=== PATIENT | male | born 1990 | race Caucasian/White ===

== ENCOUNTER 2019-01-05 22:36 | Inpatient (IN) | payer MEDICAID, OTHER ==
[2019-01-05] MEDS ORDERED: NS 1,000 ML IV ONE ×2 (23:05→23:56)
--- NOTE | 2019-01-05 23:08 | EDPHY ---
H & P Stated Complaint: 425 BS at 2156 hasn't been dx with DM just got a meter at the store Time Seen by Provider: 01/05/19 23:07 HPI/ROS: HPI CHIEF COMPLAINT: High blood sugar. HISTORY OF PRESENT ILLNESS: Patient is a 28-year-old male, presents emergency room with a high blood sugar. Patient states over the past 2 months he noticed increased urination, fatigue, increased thirst, and foamy urine. He decided go to the store tonight check his blood glucose and it was very high on the glucometer he checked with another glucometer at the store and notes that was very high again. He denies recent illness, denies vomiting or diarrhea. He has never been diagnosed with diabetes Past Medical History: Denies medical history Past Surgical History: Denies surgical Social History: Denies drugs alcohol tobacco. Family History: Noncontributory ROS REVIEW OF SYSTEMS: 10 Systems were reviewed and negative with the exception of the elements mentioned in the history of present illness. Exam Constitutional triage nursing summary reviewed, vital signs reviewed, awake/ alert. Eyes normal conjunctivae and sclera, EOMI, PERRLA. HENT normal inspection, atraumatic, moist mucus membranes, no epistaxis, neck supple/ no meningismus, no raccoon eyes. Respiratory clear to auscultation bilaterally, normal breath sounds, no respiratory distress, no wheezing. Cardiovascular rate normal, regular rhythm, no murmur, no edema, distal pulses normal. Gastrointestinal soft, non-tender, no rebound, no guarding, normal bowel sounds, no distension, no pulsatile mass. Genitourinary no CVA tenderness. Musculoskeletal no midline vertebral tenderness, full range of motion, no calf swelling, no tenderness of extremities, no meningismus, good pulses, neurovascularly intact. Skin pink, warm, & dry, no rash, skin atraumatic. Neurologic awake, alert and oriented x 3, AAOx3, moves all 4 extremities equally, motor intact, sensory intact, CN II-XII intact, normal cerebellar, normal vision, normal speech. Psychiatric normal mood/affect. Heme/Lymph/Immune no lymphadenopathy. Differential Diagnosis: Includes but is not limited to in a particular order new onset diabetes, DKA, dehydration, electrolyte disturbance, hyperglycemia Medical Decision Making: Plan for this patient IV establishment IV fluid bolus , basic labs, urinalysis, ketones re-evaluate Re-evaluation: Critical Care: Total Critical Care Time Spent Managing this Patient: 65 Minutes. This time was spent Exclusively with this patient. This Care was exclusive of procedures. The Organ System/life at risk was DKA This Patient was in Critical Condition becauseDKA Patient's bicarb bloated noted to be low at 12, anion gap of 20, blood sugar over 300 concerning for new onset DKA new onset diabetes. 2 L of fluid been ordered. I have ordered a VBG and beta hydroxybutyrate, plan for admission the hospital for DKA. Insulin drip. 1221AM: Spoke with Dr. Hodgson, agrees to admit. admit to ICU. Dr. Hodgson agrees to admit K 3.3, will replete before Insulin gtt. Q1hr bmp q1hr glucose Source: Patient - Personal History Current Tetanus/Diphtheria Vaccine: Unsure Current Tetanus Diphtheria and Acellular Pertussis (TDAP): Unsure - Medical/Surgical History Hx Asthma: No Hx Chronic Respiratory Disease: No Hx Diabetes: No Hx Cardiac Disease: No Hx Renal Disease: No Hx Cirrhosis: No Hx Alcoholism: No Hx HIV/AIDS: No Hx Splenectomy or Spleen Trauma: No Other PMH: denies - Social History Smoking Status: Current some day smoker Constitutional: Initial Vital Signs Temperature (C) 36.8 C 01/05/19 22:37 Heart Rate 88 01/05/19 22:37 Respiratory Rate 16 01/05/19 22:37 Blood Pressure 127/78 H 01/05/19 22:37 O2 Sat (%) 99 01/05/19 22:37 O2 Delivery Mode Room Air Allergies/Adverse Reactions: No Known Allergies Allergy (Verified 01/05/19 22:41) Home Medications: Medication Instructions Recorded Dextroamphetamine/Amphetamine 20 mg PO BID@,14 PRN 01/05/19 [Adderall Xr 20 mg Capsule] Cholecalciferol Vit D3 [Vitamin D3 1,000 units PO DAILY 01/06/19 (*)] [place]-3 Fatty Acids [Fish Oil 1000 1,000 mg PO DAILY 01/06/19 mg (*)] Insulin Glargine [Lantus Syringe] 36 units SC DAILY #1 vial 01/07/19 Insulin Lispro [HumaLOG LISPRO] 0 unit SC TIDMEAL unit 01/07/19 Medical Decision Making - Data Points Laboratory Results: Laboratory Results 01/05/19 23:18 01/06/19 10:40 Medications Given: Discontinued Medications Acetaminophen (Tylenol) 650 mg PO Q4HRS PRN PRN Reason: Pain, Mild/Fever, Can Take PO Stop: 07/05/19 01:24 Last Admin: 01/06/19 13:28 Dose: 650 mg Dextrose (Dextrose 50% Syringe) 25 gm IVP Q15M PRN PRN Reason: Blood gluc less than 70 mg/dL Stop: 07/05/19 02:59 Last Admin: 01/06/19 08:04 Dose: 25 gm Sodium Chloride (Ns) 1,000 mls @ 0 mls/hr IV EDNOW ONE; Wide Open PRN Reason: Protocol Stop: 01/05/19 23:06 Last Admin: 01/05/19 23:18 Dose: 1,000 mls Sodium Chloride (Ns) 1,000 mls @ 0 mls/hr IV ONCE ONE PRN Reason: Wide Open Stop: 01/05/19 23:57 Last Admin: 01/06/19 00:16 Dose: 1,000 mls Insulin Human Regular 100 unit / Miscellaneous Medication 1 ea/ Sodium Chloride 101 mls @ 0 mls/hr IV EDNOW ONE; Per Protocol PRN Reason: Protocol Stop: 01/05/19 23:59 Last Admin: 01/06/19 01:42 Dose: 101 mls Potassium Chloride (Potassium Cl 10 Meq (Premix)) 100 mls @ 100 mls/hr IV Q1H LUANNE Stop: 01/06/19 02:29 Last Admin: 01/06/19 01:34 Dose: 100 mls Dextrose (D10w) 1,000 mls @ 0 mls/hr IV AD LUANNE; Per Protocol PRN Reason: Protocol Stop: 07/05/19 02:59 Last Admin: 01/06/19 02:51 Dose: 1,000 mls Sodium Chloride (Ns) 500 mls @ 500 mls/hr IV ONCE ONE Stop: 01/06/19 02:59 Last Admin: 01/06/19 04:50 Dose: 500 mls Potassium Chloride (Potassium Cl 10 Meq (Premix)) 100 mls @ 100 mls/hr IV Q1H LUANNE Stop: 01/06/19 09:29 Last Admin: 01/06/19 10:25 Dose: 100 mls Magnesium Sulfate (Magnesium Sulf 2 Gm (Premix)) 50 mls @ 50 mls/hr IV ONCE ONE Stop: 01/06/19 10:18 Last Admin: 01/06/19 10:36 Dose: 50 mls Calcium Gluconate (Calcium Gluconate 1 Gm (Premix)) 50 mls @ 100 mls/hr IV ONCE ONE Stop: 01/06/19 09:48 Last Admin: 01/06/19 10:26 Dose: 50 mls Insulin Glargine (Lantus Syringe) 34 units SC DAILY LUANNE Stop: 07/05/19 11:14 Last Admin: 01/07/19 09:59 Dose: 34 units Insulin Human Lispro (Humalog Lispro) 0 unit SC TIDMEAL LUANNE PRN Reason: Protocol Stop: 07/05/19 11:59 Last Admin: 01/07/19 08:55 Dose: Not Given Miscellaneous Information (Message To Rn) 1 ea MISC ONCE ONE Stop: 01/06/19 03:01 Last Admin: 01/06/19 04:51 Dose: 1 ea Ondansetron HCl (Zofran) 4 mg IVP Q4HRS PRN PRN Reason: Nausea/Vomiting, Can't Take PO Stop: 07/05/19 01:24 Last Admin: 01/06/19 08:37 Dose: 4 mg Potassium Chloride (Klor-Con) 10 - 40 meq PO ONCE ONE PRN Reason: Protocol Stop: 01/06/19 10:35 Last Admin: 01/06/19 11:27 Dose: 40 meq Potassium Chloride (Klor-Con) 10 - 40 meq PO ONCE ONE PRN Reason: Protocol Stop: 01/06/19 19:30 Last Admin: 01/06/19 20:45 Dose: 40 meq Point of Care Test Results: Chemistry 01/06/19 01/06/19 01/06/19 14:27 13:23 12:32 POC Sodium POC Potassium POC Chloride POC Total CO2 POC BUN POC Creatinine POC Glucose 128 mg/dL H mg/dL 159 mg/dL H mg/dL 117 mg/dL H mg/dL (70-100) (70-100) (70-100) 01/06/19 01/06/19 01/06/19 11:38 10:30 09:37 POC Sodium POC Potassium POC Chloride POC Total CO2 POC BUN POC Creatinine POC Glucose 84 mg/dL mg/dL 79 mg/dL mg/dL 85 mg/dL mg/dL (70-100) (70-100) (70-100) 01/06/19 01/06/19 01/06/19 08:24 08:01 07:39 POC Sodium POC Potassium POC Chloride POC Total CO2 POC BUN POC Creatinine POC Glucose 181 mg/dL H mg/dL 110 mg/dL H mg/dL 59 mg/dL L mg/dL (70-100) (70-100) (70-100) 01/06/19 01/06/19 01/06/19 06:35 05:37 03:44 POC Sodium POC Potassium POC Chloride POC Total CO2 POC BUN POC Creatinine POC Glucose 86 mg/dL mg/dL 84 mg/dL mg/dL 90 mg/dL mg/dL (70-100) (70-100) (70-100) 01/06/19 01/06/19 01/06/19 02:41 01:36 00:15 POC Sodium 136 mEq/L mEq/L 133 mEq/L L mEq/L (135-145) (135-145) POC Potassium 3.4 mEq/L mEq/L 3.0 mEq/L L mEq/L (3.3-5.0) (3.3-5.0) POC Chloride 104 mEq/L mEq/L 100 mEq/L mEq/L (97-110) (97-110) POC Total CO2 13 mEq/L L mEq/L 13 mEq/L L mEq/L (22-31) (22-31) POC BUN 12 mg/dL mg/dL 14 mg/dL mg/dL (7-23) (7-23) POC Creatinine 0.6 mg/dL L mg/dL 0.7 mg/dL mg/dL (0.7-1.3) (0.7-1.3) POC Glucose 166 mg/dL H mg/dL 286 mg/dL H mg/dL 379 mg/dL H mg/dL (70-100) (70-100) (70-100) Blood Gas/Lactic Acid-Arterial 01/06/19 06:35 Tidal Volume REJ ISTAT H&H 01/06/19 01/06/19 01:36 00:15 POC Hgb 13.3 gm/dL L gm/dL 15.6 gm/dL gm/dL (13.7-17.5) (13.7-17.5) POC Hct 39 % L % 46 % % (40-51) (40-51) Departure - Departure Disposition: [facility] Inpatient Acute Clinical Impression: DKA (diabetic ketoacidoses) Qualifiers: Diabetes mellitus type: type 1 Diabetes mellitus complication detail: without coma Qualified Code(s): E10.10 - Type 1 diabetes mellitus with ketoacidosis without coma Condition: Critical
[2019-01-05 23:31] LABS: PLATELET COUNT 186 10^3/uL (150-400)
[2019-01-05] MEDS ORDERED: INSULIN REGULAR HUMAN 100 UNIT, COSIGN. REQUIRED 1 EA in NS 100 ML IV ONE (23:58)
[2019-01-06] MEDS: POTASSIUM Cl (KCl) 100 ML IV SCH ×6 (00:26→10:25)
[2019-01-06] MEDS ORDERED: ACETAMINOPHEN 325 MG TAB PO PRN (01:25)
[2019-01-06] MEDS ORDERED: ONDANSETRON DISINTEGRATING 4 MG TAB PO PRN (01:25)
[2019-01-06] MEDS ORDERED: ONDANSETRON 4 MG/2 ML VIAL IVP PRN (01:25)
[2019-01-06] MEDS ORDERED: NS 500 ML IV ONE (02:00)
--- NOTE | 2019-01-06 02:49 | GHP ---
[f rep st] HISTORY AND PHYSICAL DATE OF ADMISSION: 01/06/2019 PCP: Grant Adam MD. SOURCE: The patient provides history, appears reliable. EMR was reviewed and case discussed with ED provider. CHIEF COMPLAINT: High blood sugars. HISTORY OF PRESENT ILLNESS: Very pleasant 28-year-old gentleman with past medical history significan t for attention deficit hyperactivity disorder who presents to the emergency department today with co mplaints of elevated blood sugars. Patient has had 2 months of increasing thirst, fatigue, urination , normal appetite. He reports he went to the pharmacy and obtained a glucometer to check his blood s ugar. It was elevated greater than 400. Patient overall has just had generalized fatigue. No severe illnesses. He denies any cough, shortness of breath, rash, nausea, vomiting, diarrhea, dysuria or h ematuria. Yesterday, he did feel a little bit cold but no chills. The patient was experiencing some GI symptoms yesterday. He did take some Prilosec. Developed some nausea and GI upset, but no vomiti ng and no diarrhea. The patient does note he did have some lower extremity nonpitting edema a few da ys ago that did resolve. But he does note that it correlates with him sitting in a chair upright for 12 hours each day. REVIEW OF SYSTEMS: 10 systems reviewed, negative except as noted above. ALLERGIES: No known drug allergies. HOME MEDICATIONS: Adderall. PAST MEDICAL HISTORY: Significant for attention deficit hyperactivity disorder. PAST SURGICAL HISTORY: [place] tooth extraction. Otherwise, no abdominal surgeries. FAMILY HISTORY: Patient denies any autoimmune disorders, diabetes. SOCIAL HISTORY: The patient has a girlfriend at bedside. He occasionally vapors tobacco. Rare alco hol use. Denies any drugs or marijuana. CODE STATUS: Full. PHYSICAL EXAMINATION: VITAL SIGNS: Upon arrival to the emergency department, blood pressure is 127/ 78, heart rate 88, respiratory rate 16, O2 sats 99% on room air. Respiratory rate 16, temperature is 36.8. Current blood pressure is 104/67, heart rate 69, respiratory rate 16, O2 sat 100% on room air, temperature 36.5. GENERAL: No acute distress. Very pleasant thin adult gentleman is resting comfo rtably in bed. Girlfriend at bedside. HEAD: Normocephalic, atraumatic. EYES: Extraocular muscles grossly intact. Pupils equal, round, slightly decreased reactivity to light bilaterally, but symmet renuka. No scleral icterus or conjunctival injection. ENT: Mucous membranes appear moist. No orophar yngeal erythema or exudates. Dentition intact. No nasal discharge. NECK: Supple trachea midline. C V: Regular rate and rhythm. No murmurs, rubs, or gallops appreciated. RESPIRATORY: Lungs clear to auscultation bilaterally. No wheezes, rales, or rhonchi. Unlabored breathing. ABDOMEN: Positive fly wel sounds. Soft, nontender to palpation. No rebound, guarding, or masses appreciated. : No sup rapubic tenderness to palpation. No Wells catheter in place. EXTREMITIES: No cyanosis, clubbing, o r edema is appreciated. Patient with 1+ pedal pulses bilaterally and symmetric. NEURO: Grossly non focal. No facial drooping. Moves all extremities. PSYCH: Thought process, content and questions are all appropriate. Patient is pleasant and cooperative. LABORATORY STUDIES: WBC is 5.04, H and H is 15.2 and 41.7, MCV 93.7, platelet count 186, neutrophil percent 32.9, lymphocyte percent 54.6. Repeat H and H is 13.3 and 39. VBG pH is 7.21, pCO2 28, PO2 i s 42, bicarb 11, O2 saturation 70, base excess -16. Upon presentation, patient's sodium is 130, pota ssium 3.3, chloride is 98, CO2 is 12, anion gap 20, BUN 14, creatinine 0.7, GFR greater than 60, gluc ose is 373, calcium is 8.6. Beta hCG is 8.4. Repeat sodium is 134, potassium 3.3, chloride 107 , CO2 is 11, anion gap 16, BUN is 12, creatinine 0.7, glucose is 294, calcium 7.3, phosphorus 2.8, magnesi um 1.6. Beta hCG 7.47. Urine specific gravity 1.028 with a pH of 5.0, 2+ ketones, 3+ glucose, otherw ise negative. ASSESSMENT AND PLAN: A pleasant 28-year-old gentleman who is otherwise healthy with a past medical h istory of attention deficit hyperactivity disorder who presents to the emergency department with comp laints of elevated sugars. 1. Diabetic ketoacidosis suspicious for likely type 1 diabetes. Patient was previously healthy unti l approximately 2 months ago when he noticed these symptoms. The patient has been started on an insu aurora drip. His gap initially was 20. I is starting to decline after fluids and potassium. Now that h is potassium has been replaced he has been started on an insulin drip. Diabetic education will be re quested. We will continue patient on drips pending his gap closure. 2. Hypokalemia. Replacement has been given and improved. 3. Anemia, likely some component of anemia of dilutional component, although this point of care H an d H will plan to repeat a CBC in the morning. Plan to monitor. 4. Fluid, electrolyte, nutrition. Continue with normal saline. Transition appropriately to D5 whil e on the insulin drip. Ice chips and medications okay. Otherwise patient will be made n.p.o. during treatment for his diabetic ketoacidosis. 5. Prophylaxis, SCDs. Mobilize as tolerated. Low risk overall for VT. 6. Code status: Full. 7. Disposition: Patient admitted to observation status in the ICU pending reassessment of his gap an d closure. /[id number]/MODL
[2019-01-06] MEDS ORDERED: RN:ENTER POTASSIUM ICU PROTOCOL ON WORKLIST MISC ONE (03:00)
[2019-01-06] MEDS ORDERED: INSULIN REGULAR HUMAN 100 UNIT in NS 100 ML IV SCH (03:00)
[2019-01-06] MEDS ORDERED: NS 1,000 ML IV SCH (03:00)
[2019-01-06] MEDS ORDERED: D10W 1,000 ML IV SCH (03:00)
[2019-01-06] MEDS ORDERED: PROTOCOL MAGNESIUM 1 DOSE IV PRN (04:51)
[2019-01-06] MEDS ORDERED: PROTOCOL POTASSIUM 1 DOSE MISC PRN ×2 (04:51→10:33)
[2019-01-06] MEDS ORDERED: PROTOCOL CALCIUM 1 DOSE IV PRN (04:51)
[2019-01-06] MEDS: D50W 25 GM/50 ML SYR IVP PRN ×2 (07:45→08:04)
[2019-01-06] MEDS ORDERED: CALCIUM GLUCONATE 50 ML IV ONE (09:19)
[2019-01-06] MEDS ORDERED: MAGNESIUM SULF 2 GM/WATER 50 ML IV ONE (09:19)
[2019-01-06] MEDS ORDERED: POTASSIUM CL 10 MEQ TAB PO ONE ×2 (10:34→19:29)
[2019-01-06] MEDS ORDERED: D50W 25 GM/50 ML SYR IVP PRN (11:11)
[2019-01-06] MEDS: INSULIN LISPRO 100 UNIT/ML SC SCH ×2 (12:23→17:38)
[2019-01-06] MEDS: INSULIN GLARGINE 100 UNITS/ML UNIT SC SCH (12:27)
--- NOTE | 2019-01-06 16:13 | ASMTCMCOM ---
CM Note CM Note Notes: Pt is a 28-year old male admitted to ED for elevated blood sugars. CM discussed pt in rounds, parents were present. Pt also has supportive girlfriend. Pt is followed by PCP Grant Adam. No indication of CM needs at this time. Pt will transfer to floor today. CM available for needs. Plan: Likely Independent Date Signed: 01/06/2019 04:12 PM Electronically Signed By:Diane Phipps
--- NOTE | 2019-01-06 16:42 | HOSPPROG ---
Hospitalist Progress Note Assessment/Plan: 1. DKA - Nohx of DM, has had polyuria, polyphagia, polydipsia for ~past 2 months - Presented with Increased AG 20, B-Hydroxybutyrate 8.4, BG 370's, Bicarb 12 c/ w DKA - Started on DKA protocol - Ag closed, Bicarb >15, VBG pH 7.3 this afternoon - Transitioned from Insulin gtt to Lantus 34 units (0.5 units/kg) with SSI ordered as well - Continue to monitor BG, BMP 2. Diabetes - No hx of diagnosed DM - A1c 14.2 on admission - Management of DKA as above - Consider Endocrine consult in the AM for insulin dosing moving forward/ diabetes education - Glargine and SSI as above - Will need f/u with PCP, Endocrinology upon discharge for further management 3. Hypokalemia - In setting of DKA - Replacement ordered - Continue to monitor 4. Hyponatremia - In setting of DKA - Na improved overnight with IVF - Continue to monitor 5. Anion Gap Metabolic Acidosis - In setting of DKA - Management as above 6. ADHD - Continue home medications FEN: IVF PRN, Diabetic DVT Ppx: Low risk Code: FULL Dispo: Pending clinical course Subjective: Pt reports feeling better this AM Objective: Vital Signs Temp Pulse Resp BP Pulse Ox 36.3 C 75 16 96/63 L 99 01/06/19 15:43 01/06/19 15:43 01/06/19 15:43 01/06/19 15:43 01/06/19 15:43 Laboratory Results 01/06/19 10:40 01/05/19 01/06/19 01/07/19 05:59 05:59 05:59 Intake Total 0 5785.2 Output Total 550 Balance -550 5785.2 - Physical Exam Constitutional: no apparent distress Eyes: PERRL Ears, Nose, Mouth, Throat: dry mucous membranes Cardiovascular: regular rate and rhythym Respiratory: no respiratory distress Gastrointestinal: soft, non-tender abdomen Skin: warm Musculoskeletal: full muscle strength Neurologic: AAOx3 Psychiatric: interacting appropriately ICD10 Worksheet Patient Problems: Problems Problem Status Onset DKA (diabetic ketoacidoses) Acute
[2019-01-07 08:08] VITALS: BP 91/55
[2019-01-07] MEDS: INSULIN LISPRO 100 UNIT/ML SC SCH (08:55)
--- NOTE | 2019-01-07 09:06 | HOSPPROG ---
Hospitalist Progress Note Assessment/Plan: 1. DKA - Nohx of DM, has had polyuria, polyphagia, polydipsia for ~past 2 months - Presented with Increased AG 20, B-Hydroxybutyrate 8.4, BG 370's, Bicarb 12 c/ w DKA - Started on DKA protocol - Ag closed, Bicarb >15, VBG pH 7.3 this afternoon - Transitioned from Insulin gtt to Lantus 34 units (0.5 units/kg) with SSI ordered as well - Continue to monitor BG, BMP 2. Diabetes - No hx of diagnosed DM - A1c 14.2 on admission - Management of DKA as above - Consider Endocrine consult in the AM for insulin dosing moving forward/ diabetes education - Glargine and SSI as above - Will need f/u with PCP, Endocrinology upon discharge for further management 3. Hypokalemia - In setting of DKA - Replacement ordered - Continue to monitor 4. Hyponatremia - In setting of DKA - Na improved overnight with IVF - Continue to monitor 5. Anion Gap Metabolic Acidosis - In setting of DKA - Management as above 6. ADHD - Continue home medications home today > 30 minutes Subjective: blood sugar 160 this AM Objective: Vital Signs Temp Pulse Resp BP Pulse Ox 36.4 C 64 16 91/55 L 94 01/07/19 08:00 01/07/19 08:00 01/07/19 08:00 01/07/19 08:00 01/07/19 08:00 Laboratory Results 01/07/19 05:14 01/06/19 01/07/19 01/08/19 05:59 05:59 05:59 Intake Total 1000 Balance 1000 - Physical Exam Constitutional: no apparent distress, appears nourished Eyes: PERRL, anicteric sclera Ears, Nose, Mouth, Throat: moist mucous membranes, hearing normal Cardiovascular: regular rate and rhythym, no murmur, rub, or gallop Respiratory: no respiratory distress, no rales or rhonchi Gastrointestinal: normoactive bowel sounds, soft, non-tender abdomen Genitourinary: No peres in urethra Skin: warm, normal color Musculoskeletal: no joint effusions Neurologic: AAOx3 ICD10 Worksheet Patient Problems: Problems Problem Status Onset DKA (diabetic ketoacidoses) Acute
--- NOTE | 2019-01-07 09:33 | GDS ---
[f rep st] DISCHARGE SUMMARY DISCHARGE DIAGNOSES: 1. Diabetic ketoacidosis. 2. New diagnosis of type 1 diabetes. 3. Uncontrolled diabetes. Please see admission history and physical by Dr. Racquel Hodgson. The patient presented with a couple o f months of polyuria, polydipsia. Checked his blood sugar, it was high. He came in and was found to be in DKA, managed on an insulin drip overnight, A1c 14. His gap closed. He felt well. There were no secondary causes other than uncontrolled diabetes. The patient was initiated on Lantus at 34 uni ts with improvement in his blood sugars and his gap remained closed. He is discharged on 36 units of Lantus with a lispro sliding scale. Referral to Endocrinology. He demonstrated understanding of th is plan. Thirty minutes was spent discussing the importance of progressive understanding of diabetes in good c ontrol going forward. /[id number]/MODL
[2019-01-07] MEDS: INSULIN GLARGINE 100 UNITS/ML UNIT SC SCH (09:59)
--- NOTE | 2019-01-07 11:45 | PDMN ---
Medical Necessity Medical necessity: Change to IP, as of 01/06/19, per MD & MCG M-130; los >2 mn for ongoing management of DKA & new diabetes diagnosis; requiring further monitoring & diabetic education to safely dc
--- NOTE | 2019-01-07 12:07 | ASDISCHSUM ---
Discharge Information Plan Status:Home with No Needs Medically Cleared to Leave:01/07/2019 Discharge Date:01/07/2019 11:53 AM CM D/C Disposition:Home, Routine, Self-Care ADT D/C Disposition:Home, Routine, Self-Care Projected Discharge Date:01/07/2019 12:00 AM Transportation at D/C:Family Discharge Delay Reason: Follow-Up Date:01/07/2019 12:00 AM Discharge Slot:1 - 8:01 am - 12:00 noon Final Diagnosis:DKA Placement Information Patient Contact Information Contact Name:SURYA Relationship:Other Address: Work Phone: City: [facility] Phone: State/[place] Code: Email: Financial Information Financial Class:Medicaid Primary Plan Desc:[employer] [place] [place] Primary Plan Number:[id number] Secondary Plan Desc: Secondary Plan Number: Assessment Information [facility] CM Progress Note CM Note CM Note Notes: Pt is a 28-year old male admitted to ED for elevated blood sugars. CM discussed pt in rounds, parents were present. Pt also has supportive girlfriend. Pt is followed by PCP Grant Adam. No indication of CM needs at this time. Pt will transfer to floor today. CM available for needs. Plan: Likely Independent Date Signed: 01/06/2019 04:12 PM Electronically Signed By:Diane Phipps Intervention Information Intervention Type:*Incorrect Registration Date of Service:01/05/2019 11:15 AM Patient Type:Inpatient Staff Member:JOEL Urbina Courtney Hours: Discipline: Severity: Comment:
--- NOTE | 2019-01-07 12:21 | ASMTCMCOM ---
CM Note CM Note Notes: CM presented to meet with patient and family prior to discharge, patient was meeting with Nurtrionist. CM email to RN Shredder/Granulator Operator at [facility]/ PCP Dr. Shepherd to inform of hospitalization and discharge. Family here with patient, RN confirmed patient discharged home independent with family. Date Signed: 01/07/2019 12:20 PM Electronically Signed By:Nithya Adams
== END 2019-01-07 11:53 | disposition home or self-care (01) | DRG 420 ==
LOC: INTOOBSV 01-06 00:20 → F2N 01-06 02:17 → F1N 01-06 15:47 → OBSVTOIN 01-06 16:49
PROVIDERS: ADMIT Family Medicine; ATTEND Family Medicine
DX: E10.10 Type 1 diabetes mellitus with ketoacidosis without coma (principal); E10.65 Type 1 diabetes mellitus with hyperglycemia; E87.6 Hypokalemia; E87.1 Hypo-osmolality and hyponatremia; D64.9 Anemia, unspecified; F90.9 Attention-deficit hyperactivity disorder, unspecified type
CPT/HCPCS: 82435-PO; 82565-PO; 82947-PO; 84132-PO; 84295-PO; 84520-PO; 85014-ER; 96365; 96366; J0610; J1815; J2405; J3475; J3480